=== PATIENT | male | born 1995 | race Caucasian/White ===

== ENCOUNTER 2017-12-28 05:57 | Emergency (ER) | payer OTHER, SELFPAY ==
[2017-12-28 05:58] VITALS: BP 169/70; PULSE 85; RESP 18; TEMP 36.6; O2SAT 100; BMI 33.6
--- NOTE | 2017-12-28 06:26 | CT_ITS ---
STUDY: CT ABDOMEN AND PELVIS WITHOUT CONTRAST REASON FOR EXAM: Male, 22 years old. Right flank pain, nausea, vomiting RADIATION DOSAGE (If Supplied By Facility): CTDIvol = ( 12.91 ) mGy, DLP = ( 722.35 ) mGycm TECHNIQUE: Transaxial 2.5 mm images were obtained from the dome of the diaphragm to the symphysis pubis without oral contrast, and without intravenous contrast. Sagittal and coronal images were reconstructed. This examination is limited for the evaluation of gastrointestinal, solid organs and vascular structures due to the lack of intravenous and oral contrast. Individualized dose optimization techniques were used for this CT. COMPARISON: None. FINDINGS: The visualized lung bases are unremarkable. The visualized portions of the heart are within normal limits. Normal liver. Normal gallbladder and extrahepatic biliary system. Normal spleen. Normal pancreas. Normal bilateral adrenal glands. 0.9 cm low attenuation in the anterior mid renal cortex measures near water density. Multiple bilateral punctate calculi without obstruction. There is no obstructive uropathy, obstructive renal or ureteral calculi. Normal visualized stomach. Normal small intestine. Normal colon. The retrocecal appendix is visualized and appears normal. Image [id number] series 2. Normal abdominal aorta. Normal inferior vena cava. Normal retroperitoneum. Normal urinary bladder. There is a small umbilical hernia containing fat. Normal osseous structures. CT/Abdomen/Pelvis without Cont IMPRESSION: There is no obstructive uropathy, obstructive renal or ureteral calculi. There is no appendicitis, colitis, diverticulitis, ascites, abscess, collection, perforation or obstruction. Other nonacute findings as outlined above. Electronically Signed: Shannan Montes MD at 7:12 EDT , Service support ,
[2017-12-28] MEDS: Morphine 4 MG/ML Syringe IV (06:35)
[2017-12-28] MEDS: Ketorolac 30 MG/ML Syringe IV (06:35)
[2017-12-28] MEDS: 0.9% Normal Saline 1,000 ML 250 ML IV (06:35)
[2017-12-28] MEDS: Ondansetron 4 MG/2 ML Vial IV (06:35)
[2017-12-28 06:37] LABS: Absolute Lymphocyte Count 2.37 X10^3/ul (0.83-4.51); Absolute Neutrophil Count 9.7 X10^3/uL (2.0-7.7); Basophil# 0.02 X10^3/uL; Basophil% 0.2 % (0-1); Eosinophil# 0.03 X10^3/uL; Eosinophils% 0.2 % (0-5); Hematocrit 44.5 % (40-54); Hemoglobin 15.8 g/dl (13.0-16.5); Lymphocyte # 2.37 X10^3/ul (4.0); Lymphocyte % 18.3 % (19-41); Mean Corp Hgb Conc 35.5 g/gl (32-36); Mean Corpuscular Hgb 31.2 pg (27.0-32.0); Mean Corpuscular Volume 87.9 fL (80-94); Mean Platelet Vol. 9.6 fl (6.2-12.0); Monocyte# 0.77 X10^3/uL; Neutrophil # 9.73 X10^3/uL (2.7-7.7); Neutrophil % 75.1 % (47-70); Platelet Count 188 K/mm3 (150-450); RBC Distribution Width CV 13.2 % (11.6-14.6); RBC Distribution Width SD 41.5 fl (35.1-43.9); Red Blood Count 5.06 M/mm3 (4.6-6.2); White Blood Count 12.9 K/mm3 (4.4-11.0)
[2017-12-28 06:38] LABS: POSITIVE COUNT NO; POSITIVE DIFFERENTIAL NO; POSITIVE MORPHOLOGY NO
[2017-12-28 06:50] LABS: Anion Gap 12 (5-15); BUN 8 mg/dL (7-18); BUN/Creat Ratio 7.8 RATIO (10-20); Calcium,Total 9.6 mg/dL (8.5-10.1); Chloride 103 mmol/L (98-107); Creatinine, Serum 1.02 mg/dL (0.70-1.30); EST Glomerular Filtration Rate 98 mL/min (>60); Est Glom Filt Rate - Afr Amer 119 mL/min (>60); Estimated Creatinine Clearance 114.56 ml/min; Glucose 118 mg/dL (74-106); Potassium 3.8 mmol/L (3.5-5.1); Sodium Level 143 mmol/L (136-145)
[2017-12-28 07:15] LABS: Red Blood Cells-Urine 0 SEEN /hpf (0-5); Squamous Epithelial Cells - UA 0 SEEN /hpf (0-5); White Blood Cells 0 SEEN /hpf (0-5)
[2017-12-28 07:17] LABS: Color, Urine Yellow (Yellow); Glucose, Dipstick Normal (Normal); Ketone-Dipstick Negative (Negative); Leukocyte Esterase-Dipstick Negative /ul (Negative); Nitrite-Dipstick Negative (Negative); Occult Blood-Urine Negative /ul (Negative); Protein-Dipstick Negative (Negative); Specific Gravity, Urine 1.015 (1.002-1.030); Urine Bilirubin Dipstick Negative (Negative); Urine Clarity Clear (Clear); Urine Urobilinogen Normal (Normal)
--- NOTE | 2017-12-28 07:17 | ED.VISSUMM ---
- ER Visit Summary Date of Service: 12/28/17 Chief Complaint: Right flank pain History of Present Illness: The patient is a 22 M worsening right flank pain since midnight last evening. Pain radiates to the side. Nausea and vomiting multiple times. No hematemesis. No urinary symptoms. No previous similar symptoms in the past. Denies history of kidney stones, however states significant family history of kidney stones. Pain is severe. No history of gastric ulcers or kidney injuries. Addition patient reports being manipulated by chiropractor yesterday. Did not have any immediate pain after being treated yesterday. No medications taken. Physical Examination: General: Alert and oriented ?3, mild distress HEENT: Normocephalic, atraumatic. Moist mucosa membranes Neck: supple, nontender. Cardiovascular: Regular rate and rhythm, no murmurs Respiratory: Normal breath sounds, symmetric, no distress Abdomen: Soft, nontender, nondistended Back: No CVA tenderness, no rash. Tenderness to right paralumbar, straight leg test was negative. Extremities: Nontender, no edema, pulses intact ?4 Neuro: no focal neurological deficits. Test Results: WBC 12.9. Hemoglobin 15. Chemistries normal. CT abdomen pelvis per radiology shows no acute process. No obstructive uropathy. No inflammatory findings. UA: No acute process. Emergency Department Course and Treatment: Patient uncomfortable, renal stone protocol initiated. Morphine, Zofran, Toradol IV fluids. Urine labs stable. CT flank negative for obstructive uropathy. Does have reproducible muscle pain. He went to the chiropractor yesterday. Discussed likely muscle skeletal strain. Discussed using NSAIDs [id number]. [facility] report was negative. Additional Percocet for symptom control. Follow-up as an outpatient. He states he does have an appoint with his chiropractor today, discussed going to discuss his symptoms. Treatment Plan: [] Disposition: Discharge Impression: Acute lumbar strain This note was generated with [employer] dictation software. It may contain incorrect words, spelling, and punctuation that were not noted in review of the chart prior to signing ED Disposition - Plan for ED Patient: Disposition: Home or Assisted Living Chief Complaint: Flank Pain Diagnosis: Acute lumbar myofascial strain Instructions: ED Sprain Strain Lumbar Prescriptions: Oxycodone HCl/Acetaminophen [Percocet 5/325] 1 tablet PO Q6H PRN PRN 3 Days #12 tablet PRN Reason: Pain Ondansetron [Zofran Odt] 4 mg PO Q8H PRN PRN #10 tablet PRN Reason: Nausea Ibuprofen 600 mg PO 4X/DAY #30 tablet Referrals: Care Physician,No Primary [Primary Care Provider] - Additional Instructions: follow up with your chiropractor today to discussed symptoms
[2017-12-28 07:34] LABS: Bacteria RARE /hpf (None Seen); Mucous, Urine 1+ /hpf (<or=2+)
[2017-12-28] MEDS: oxyCODONE 5 MG Tablet PO (08:15)
[2017-12-28 08:28] VITALS: BP 149/77; PULSE 84; RESP 18; O2SAT 99
== END 2017-12-28 08:29 | disposition home or self-care (01) ==
PROVIDERS: Emergency Provider Emergency Medicine
DX: S39.012A Strain of muscle, fascia and tendon of lower back, initial encounter (principal); X58.XXXA Exposure to other specified factors, initial encounter; Y93.9 Activity, unspecified; Y92.89 Other specified places as the place of occurrence of the external cause; Y99.9 Unspecified external cause status; R11.2 Nausea with vomiting, unspecified
CPT/HCPCS: 74176; 80048; 81001; 85025; 96361; 96374; 96375; 99285; J7030; J2405

== ENCOUNTER 2018-01-03 17:30 | Emergency (ER) | payer OTHER, SELFPAY ==
[2018-01-03 17:31] VITALS: BP 142/79; PULSE 83; RESP 16; TEMP 36.2; O2SAT 97; BMI 32.9
--- NOTE | 2018-01-03 18:33 | CT_ITS ---
STUDY: CT ABDOMEN AND PELVIS WITH CONTRAST REASON FOR EXAM: Male, 22 years old. Right sided abdominal pain. RADIATION DOSAGE (If Supplied By Facility): CTDIvol = ( 19.47 ) mGy, DLP = ( 1436.05 ) mGycm TECHNIQUE: Transaxial images were obtained from the dome of the diaphragm to the symphysis pubis without oral contrast. 100ML ml of Isovue 300 contrast was administered. Sagittal and coronal images were reconstructed. Individualized dose optimization techniques were used for this CT. COMPARISON: 12/28/2017 FINDINGS: The visualized lung bases are clear. The visualized portions of the heart and pericardium are within normal limits. There are no calcified gallstones present. The liver is within normal limits. There are no suspicious hepatic lesions. The spleen is normal in size. The pancreas is within normal limits. The adrenal glands are within normal limits. There are no renal or ureteral stones. There is no hydronephrosis. There are no suspicious renal lesions. Normal visualized stomach. There is no bowel obstruction or inflammation. The appendix is visualized and appears normal. The aorta is normal in caliber. There is no abdominal or pelvic free air, free fluid, fluid collection or lymphadenopathy. There are no destructive osseous lesions. CT/Abdomen/Pelvis WITH Contrast IMPRESSION: No acute abdominal or pelvic pathology. Electronically Signed: Ron Felix, at 20:32 EDT Tel , Service support ,
--- NOTE | 2018-01-03 18:36 | ED.DCSUM_ITS ---
- ER Visit Summary Date of Service: 01/03/18 Chief Complaint: Abdominal pain History of Present Illness: The patient is a 22 M with a one-week history of right-sided abdominal pain. Patient does report nausea and vomiting that is worse in the mornings. He was seen in the ER last week with an unremarkable workup including a flank CT. Patient states his symptoms have persisted throughout the week. He has not been taking the narcotic that was given last week because it makes him more constipated. He has not had urinary symptoms. Physical Examination: Vital signs unremarkable. Patient is sitting upright in bed. He is nontoxic appearing. Heart is regular rate and rhythm. Lung sounds are clear. Abdomen is soft with moderate diffuse tenderness, worse in the right lower quadrant. There is no guarding or rebound at this time. He does have hypoactive but present bowel sounds. examination reveals no focal testicular tenderness. There is no masses. Epididymis is nontender. There is no evidence of hernia. Test Results: CBC and chemistry studies are unremarkable. Urinalysis shows 25 of blood on macroscopic exam and 0-5 [address]s [address] exam[address] scan with p.o. and IV contrast was obtained that shows no acute pathology. Emergency Department Course and Treatment: Patient was ordered pain medication but he refused. On repeat evaluation patient is resting comfortably. He is obviously frustrated that there is no cause of his pain. He states he has not been able to have bowel movements. He will be given a prescription for MiraLAX. He did agree to take Toradol will be given an injection prior to discharge. He will also be given Toradol prescription for home. He is referred to Dr. Yao for follow-up. Treatment Plan: [] Disposition: Discharge Impression: Abdominal pain, uncertain etiology This note was generated with [employer] software. It may contain incorrect words, spelling, and punctuation that were not noted in review of the chart prior to signing ED Disposition - Plan for ED Patient: Chief Complaint: Abd Pain Referrals: Care Physician,No Primary [Primary Care Provider] -
[2018-01-03] MEDS: 0.9% Normal Saline 1,000 ML 150 ML IV (18:54)
[2018-01-03 18:55] LABS: Absolute Lymphocyte Count 2.54 X10^3/ul (0.83-4.51); Absolute Neutrophil Count 5.3 X10^3/uL (2.0-7.7); Basophil# 0.02 X10^3/uL; Basophil% 0.2 % (0-1); Eosinophil# 0.06 X10^3/uL; Eosinophils% 0.7 % (0-5); Hematocrit 39.9 % (40-54); Hemoglobin 14.5 g/dl (13.0-16.5); Lymphocyte # 2.54 X10^3/ul (4.0); Lymphocyte % 29.4 % (19-41); Mean Corp Hgb Conc 36.3 g/gl (32-36); Mean Corpuscular Hgb 31.7 pg (27.0-32.0); Mean Corpuscular Volume 87.1 fL (80-94); Monocyte# 0.74 X10^3/uL; Monocyte% 8.6 % (0-10); Neutrophil # 5.26 X10^3/uL (2.7-7.7); Neutrophil % 60.9 % (47-70); POSITIVE COUNT NO; POSITIVE DIFFERENTIAL NO; POSITIVE MORPHOLOGY NO; Platelet Count 182 K/mm3 (150-450); RBC Distribution Width CV 12.9 % (11.6-14.6); RBC Distribution Width SD 39.8 fl (35.1-43.9); Red Blood Count 4.58 M/mm3 (4.6-6.2); White Blood Count 8.6 K/mm3 (4.4-11.0)
[2018-01-03 19:21] LABS: Anion Gap 7 (5-15); BUN 14 mg/dL (7-18); BUN/Creat Ratio 16.7 RATIO (10-20); Calcium,Total 9.2 mg/dL (8.5-10.1); Chloride 107 mmol/L (98-107); Creatinine, Serum 0.84 mg/dL (0.70-1.30); EST Glomerular Filtration Rate 123 mL/min (>60); Est Glom Filt Rate - Afr Amer 149 mL/min (>60); Estimated Creatinine Clearance 139.11 ml/min; Glucose 90 mg/dL (74-106); Potassium 3.7 mmol/L (3.5-5.1); Sodium Level 141 mmol/L (136-145)
[2018-01-03 19:42] LABS: Bacteria 0 SEEN /hpf (None Seen); Squamous Epithelial Cells - UA 0 SEEN /hpf (0-5); White Blood Cells 0 SEEN /hpf (0-5)
[2018-01-03 19:52] VITALS: RESP 18
[2018-01-03 20:29] LABS: Color, Urine Yellow (Yellow); Glucose, Dipstick Normal (Normal); Ketone-Dipstick 5 mg/dl (Negative); Leukocyte Esterase-Dipstick Negative /ul (Negative); Nitrite-Dipstick Negative (Negative); Occult Blood-Urine 25 /ul (Negative); Protein-Dipstick 15 mg/dl (Negative); Urine Bilirubin Dipstick Negative (Negative); Urine Clarity Clear (Clear); Urine Urobilinogen Normal (Normal)
[2018-01-03 20:37] LABS: Mucous, Urine 2+ /hpf (<or=2+); Red Blood Cells-Urine 0-5 SEEN /hpf (0-5)
[2018-01-03 21:24] VITALS: BP 146/62; PULSE 84; RESP 17; O2SAT 99
--- NOTE | 2018-01-03 21:46 | ED.DEP ---
ED Disposition - Plan for ED Patient: Disposition: Home or Assisted Living Chief Complaint: Abd Pain Instructions: ED Abdominal Pain Unkn Cause Male Prescriptions: Polyethylene Glycol 3350 [Miralax] 17 gm PO DAILY #30 packet Ketorolac [Toradol] 10 mg PO Q6H PRN #20 tablet PRN Reason: Pain Referrals: Michael Covington MD [STAFF PHYSICIAN] - As soon as possible
[2018-01-03] MEDS: Ketorolac 30 MG/ML Syringe IV (21:48)
[2018-01-03 21:57] VITALS: BP 136/71; PULSE 81; RESP 18; O2SAT 99
== END 2018-01-03 21:58 | disposition home or self-care (01) ==
PROVIDERS: Emergency Provider Emergency Medicine
DX: R10.9 Unspecified abdominal pain (principal); R11.2 Nausea with vomiting, unspecified
CPT/HCPCS: 74177; 80048; 81001; 85025; 99283; J7030; Q9967; A4216; J2405